=== PATIENT | male | born 1995 | race Caucasian/White ===

== ENCOUNTER 2018-03-23 04:23 | Inpatient (IN) | payer MEDICARE, MEDICAID ==
[~2018-03-23] VITALS: Ht 190.5 cm; Wt 85.7 kg
[2018-03-23] VITALS (8 sets, daily range): BP systolic 107–126; BP diastolic 60–80
[2018-03-23] MEDS ORDERED: LITH300T4 PO (06:45)
[2018-03-23] MEDS ORDERED: OLAN15TA2 PO (06:45)
[2018-03-23] MEDS ORDERED: TOPI25 PO (06:45)
[2018-03-23] MEDS ORDERED: ZOLPIDEM TARTRATE 10 MG TABLET PO PRN (07:15)
[2018-03-23] MEDS ORDERED: LORazepam 2 MG TABLET PO PRN ×2 (07:15→13:15)
[2018-03-23] MEDS ORDERED: HALOPERIDOL 5 MG TABLET PO PRN (07:15)
[2018-03-23] MEDS ORDERED: BACITRACIN 28.4 GM OINTMENT TP PRN (09:15)
[2018-03-23] MEDS ORDERED: IBUPROFEN 600 MG TABLET PO PRN (09:15)
[2018-03-23] MEDS ORDERED: ONDANSETRON HCL 4 MG TABLET PO PRN (09:15)
[2018-03-23] MEDS ORDERED: LOPERAMIDE HCL 2 MG CAPSULE PO PRN (09:15)
[2018-03-23] MEDS ORDERED: MAGNESIUM HYDROXIDE SUSPENSION 30 ML UDCUP PO PRN (09:15)
[2018-03-23] MEDS ORDERED: MAG HYDROX/AL HYDROX/SIMETH ES 30 ML SUSPENSION UDCUP PO PRN (09:15)
[2018-03-23] MEDS ORDERED: ALBUTEROL SULFATE HFA 90 MCG/PUFF 8 GM INHALER IH PRN (09:15)
[2018-03-23] MEDS ORDERED: BENZOCAINE/MENTHOL LOZENGE MM PRN (09:15)
[2018-03-23] MEDS ORDERED: ACETAMINOPHEN 325 MG TABLET PO PRN (09:15)
[2018-03-23] MEDS ORDERED: PETROLATUM,WHITE 71 GM JELLY TP PRN (09:15)
[2018-03-23] MEDS ORDERED: CloNIDine HCL 0.1 MG TABLET PO PRN (09:15)
[2018-03-23] MEDS: NICOTINE 21 MG/24 HOUR PATCH TD SCH (10:14)
[2018-03-23] MEDS ORDERED: PNEUMOCOCCAL VACCINE POLYVALENT 0.5 ML VIAL [PPSV23] IM ONE (11:30)
[2018-03-23] MEDS: OLANZapine 7.5 MG TABLET PO SCH (20:16)
[2018-03-24 00:11] VITALS: BP 109/62
[2018-03-24 04:04] VITALS: BP 108/60
[2018-03-24] MEDS ORDERED: LORazepam 2 MG TABLET PO PRN (07:00)
[2018-03-24 08:27] VITALS: BP 122/60
[2018-03-24 08:37] LABS: BASOPHILS % (AUTO) 0.6 % (0.0-2.0); EOSINOPHILS % (AUTO) 2.8 % (1.0-6.0); HEMATOCRIT 44.9 % (41-53); HEMOGLOBIN 15.5 g/dL (13.5-17.5); LYMPHOCYTES # (AUTO) 2.5 K/uL (1.0-4.8); LYMPHOCYTES % (AUTO) 35.8 % (22.0-44.0); MEAN CORPUSCULAR HEMOGLOBIN 30.7 pg (26.0-34.0); MEAN CORPUSCULAR HGB CONC 34.4 G/dL (31.0-37.0); MEAN CORPUSCULAR VOLUME 89 fL (80-100); MONOCYTES # (AUTO) 0.7 K/uL (0.1-1.0); MONOCYTES % (AUTO) 9.8 % (2.0-9.0); NEUTROPHILS # (AUTO) 3.6 K/uL (1.8-7.7); PLATELET COUNT (AUTO) 216 K/uL (150-450); RED BLOOD CELL COUNT(AUTO) 5.04 MIL/uL (4.50-5.90); RED CELL DISTRIBUTION WIDTH 13.4 % (11.5-14.5)
[2018-03-24 08:39] LABS: APPEARANCE,URINE TURBID (CLEAR); BILIRUBIN,URINE NEGATIVE (NEGATIVE); GLUCOSE, URINE (UA) NEGATIVE (NEGATIVE); KETONES,URINE NEGATIVE (NEGATIVE); LEUKOCYTE ESTERASE ,URINE NEGATIVE (NEGATIVE); NITRATE,URINE NEGATIVE (NEGATIVE); OCCULT BLOOD,URINE NEGATIVE (NEGATIVE); PROTEIN,URINE NEGATIVE (NEGATIVE); UROBILINOGEN,URINE 0.2 mg/dL (<=1.0)
[2018-03-24] MEDS: FLUoxetine HCL 20 MG CAPSULE PO SCH (08:42)
[2018-03-24] MEDS: LORazepam 2 MG TABLET PO SCH ×4 (08:42→20:46)
[2018-03-24] MEDS: NICOTINE 21 MG/24 HOUR PATCH TD SCH (08:42)
[2018-03-24 08:47] LABS: AMPHET/METH SCREEN,URINE NEGATIVE (NEGATIVE); BARBITURATE SCREEN, URINE NEGATIVE (NEGATIVE); BENZODIAZEPINES SCREEN,URINE NEGATIVE (NEGATIVE); CANNABINOID SCREEN,URINE POSITIVE (NEGATIVE); COCAINE SCREEN,URINE NEGATIVE (NEGATIVE); METHADONE SCREEN, URINE NEGATIVE (NEGATIVE); OPIATE SCREEN,URINE NEGATIVE (NEGATIVE)
[2018-03-24 09:02] LABS: PHENCYCLIDINE SCREEN,URINE NEGATIVE (NEGATIVE)
[2018-03-24 09:16] LABS: ALANINE AMINOTRANSFERASE 31 U/L (12-78); ALBUMIN 4.1 g/dL (3.4-5.0); ALKALINE PHOSPHATASE 58 U/L (46-116); ANION GAP 7 mmol/L (8-16); ASPARTATE AMINOTRANSFERASE 20 U/L (15-37); BILIRUBIN,TOTAL 0.6 mg/dL (0.1-1.0); CALCIUM, TOTAL 8.6 mg/dL (8.8-10.5); CARBON DIOXIDE 31 mmol/L (22-29); CHLORIDE 106 mmol/L (98-107); CREATININE 0.76 mg/dL (0.60-1.30); GLOMERULAR FILTR. RATE CALC > 60 mL/min (>60); GLUCOSE,RANDOM 78 mg/dL (70-110); HEMOGLOBIN A1C 5.6 % (4.5-6.2); POTASSIUM 4.1 mmol/L (3.5-5.1); SODIUM SERUM 144 mmol/L (136-145); THYROID STIMULATING HORMONE 1.84 uIU/mL (0.36-3.74); TOTAL PROTEIN, SERUM 6.5 g/dL (6.4-8.2); UREA NITROGEN, BLOOD 18 mg/dL (7-18)
[2018-03-24 12:35] VITALS: BP 116/64
[2018-03-24 16:14] VITALS: BP 116/77
[2018-03-24 16:24] VITALS: BP 116/77
[2018-03-24] MEDS: OLANZapine 7.5 MG TABLET PO SCH (20:48)
[2018-03-25 02:27] VITALS: BP 107/66
[2018-03-25 02:34] VITALS: BP 107/66
[2018-03-25 08:20] VITALS: BP 115/65
[2018-03-25] MEDS: FLUoxetine HCL 20 MG CAPSULE PO SCH (08:28)
[2018-03-25] MEDS: LORazepam 2 MG TABLET PO SCH ×4 (08:28→20:40)
[2018-03-25] MEDS: NICOTINE 21 MG/24 HOUR PATCH TD SCH (08:30)
[2018-03-25 09:37] VITALS: BP 107/58
[2018-03-25 16:18] VITALS: BP 140/87
[2018-03-25 19:30] VITALS: BP 136/84
[2018-03-25] MEDS: OLANZapine 7.5 MG TABLET PO SCH (20:40)
[2018-03-26 02:28] VITALS: BP 106/65
[2018-03-26 04:00] VITALS: BP 106/65
[2018-03-26] MEDS ORDERED: LORazepam 1 MG TABLET PO PRN (07:00)
[2018-03-26] MEDS: FLUoxetine HCL 20 MG CAPSULE PO SCH (08:35)
[2018-03-26] MEDS: LORazepam 1 MG TABLET PO SCH ×4 (08:35→20:17)
[2018-03-26] MEDS: NICOTINE 21 MG/24 HOUR PATCH TD SCH (08:36)
[2018-03-26 08:57] VITALS: BP 114/74
[2018-03-26 16:26] VITALS: BP 129/72
[2018-03-26 16:27] VITALS: BP 129/72
[2018-03-26] MEDS: OLANZapine 7.5 MG TABLET PO SCH (20:17)
[2018-03-27 00:48] VITALS: BP 116/63
[2018-03-27] MEDS ORDERED: LORazepam 1 MG TABLET PO PRN (07:00)
[2018-03-27 08:29] VITALS: BP 137/66
[2018-03-27] MEDS: NICOTINE 21 MG/24 HOUR PATCH TD SCH (08:56)
[2018-03-27] MEDS: FLUoxetine HCL 20 MG CAPSULE PO SCH (08:56)
[2018-03-27] MEDS ORDERED: FLUO10CA21 PO (09:34)
== END 2018-03-27 15:17 | disposition home or self-care (01) | DRG 885 ==
LOC: B2S 07:26 → EDSTATUS 07:36 → B2X 08:48
PROVIDERS: ADMIT Psychiatry & Neurology Psychiatry; ATTEND Psychiatry & Neurology Psychiatry
DX: F33.3 Major depressive disorder, recurrent, severe with psychotic symptoms (principal); R45.851 Suicidal ideations; F41.9 Anxiety disorder, unspecified; J45.909 Unspecified asthma, uncomplicated; R45.87 Impulsiveness; G47.9 Sleep disorder, unspecified; G47.00 Insomnia, unspecified; F10.10 Alcohol abuse, uncomplicated; F14.90 Cocaine use, unspecified, uncomplicated; R45.850 Homicidal ideations; F09 Unspecified mental disorder due to known physiological condition; S30.810A Abrasion of lower back and pelvis, initial encounter; S90.812A Abrasion, left foot, initial encounter; F12.90 Cannabis use, unspecified, uncomplicated; W18.39XA Other fall on same level, initial encounter; F90.2 Attention-deficit hyperactivity disorder, combined type; Z56.0 Unemployment, unspecified; Z91.02 Food additives allergy status; Z59.0 Homelessness; Z79.899 Other long term (current) drug therapy; Z63.9 Problem related to primary support group, unspecified; Z91.19 Patient's noncompliance with other medical treatment and regimen; Z91.5 Personal history of self-harm; Z71.41 Alcohol abuse counseling and surveillance of alcoholic; Z71.51 Drug abuse counseling and surveillance of drug abuser
CPT/HCPCS: 83036; 84436; 84439; 84443